=== PATIENT | female | born 1985 | race Two or more races ===

== ENCOUNTER 2016-09-10 12:45 | Inpatient (IN) | payer MEDICAID ==
[2016-09-10] VITALS (35 sets, daily range): BP systolic 94–113; BP diastolic 54–77; PULSE 74–107; RESP 18
[~2016-09-10 12:45] MED LIST: FOLI200T OR; PRENTAB72 PO; [UNRECOGNIZED DRUG - CODE] PO
--- NOTE | 2016-09-10 13:45 | PD ---
HPI Chief Complaint sharp abdominal pain Date Seen: Sep 10, 2016 Time Seen: 13:15 (Luis Chun MD R1) Travel History International Travel<30 Days: No Contact w/Intl Traveler<30Days: No Known Affected Area: No (Luis Chun MD R1) History of Present Illness HPI 31-year-old at 41/1 weeks presents with sharp pain since this morning and a REDDY for past 3 days. Cervical exam shows she has 3-4 cm dilated 60% effaced and -1 with intact membranes. Previous deliveries have been by vaginal at home without complications. Pt had a UTI in February and is GBS positive. Pt denies CP, SOB, N/V/D, and DVT pain. Para: 6 : 8 (Luis Chun MD R1) History Past Medical History Narrative Medical migraines (Luis Chun MD R1) Past Surgical History Surgical History: No Previous Surgery (Luis Chun MD) Family History Narrative Family History Father - denies Mother - HTN, DM, CVD, thyroid (Luis Chun MD) Social History Alcohol Use: No Tobacco Use: No Substance Abuse: No (Luis Chun MD R1) Allergies-Medications (Allergen,Severity, Reaction): Coded Allergies: Tramadol (Verified Allergy, Mild, Rash, 09/10/16) Home Meds Reported Medications Folic Acid 200 Mcg [id number] Mcg OR 10/04/11 Ferrous Sulfate (Hm Iron Slow Release)45 Mg Tab45 Mg PO 10/04/11 Vit W/ Ferrous Fumara () Tab1 Po 10/04/11 Review of Systems General / Constitutional: No: Fever, Weight Gain, Weight Loss, Chills Eyes: No: Diploplia, Blurred Vision, Visual changes, Pain, Photophobia, Other HENT: Headaches (Hx migraines), No: Vertigo, Dental Difficulties, Lightheadedness, Other Respiratory: No: Cough, Short of Breath Gastrointestinal: Vomiting (has been vomiting throughout ), No: Nausea, Diarrhea Genitourinary: Hesitancy, Pelvic Pain (suprapubic pain), No: Decreased Urinary Output, Discharge, Vaginal Bleeding Musculoskeletal: No: Limited ROM, Weakness, Cramping, Edema, Pain, Other Skin: No Rash, No Itching, No Dryness, No Lumps, No Change in Pigmentation, No Change in Nails, No Alopecia, No Lesions Neurologic: No: Weakness, Dizziness, Syncope, Focal Abnormalities, Coordination Problem, Headache, Slurred Speech, Seizures (Luis Chun MD R1) Physical Exam Narrative GENERAL: WDWN female lying in bed in NAD. SKIN: Warm and dry. HEAD: Normocephalic and atraumatic. EYES: No scleral icterus. No injection or drainage. EOMI ENT: No nasal drainage noted. Mucous membranes pink. Airway patent. NECK: Supple, trachea midline. CARDIOVASCULAR: RRR without murmur, gallop, or rub. RESPIRATORY: Breath sounds equal bilaterally w/no increased WOB. No accessory muscle use. ABDOMEN/GI: Abdomen soft, non-tender, no rebound, no guarding Gravid to 41 weeks size Fundal Height: 41 GENITOURINARY: External Genitalia: intact and normal in appearance Cervix: anterior Dilatation: 3-4 Effacement: 60 Station: -1 Presentation: vertex Membranes: intact Uterine Contractions: no FHT's: Category: 1 Baseline: 130 Reactive: yes Variability: moderate Decels: 0 EXTREMITIES: No cyanosis or edema or sign of DVT. NEUROLOGICAL: Awake and alert. Motor and sensory grossly within normal limits. Normal speech. (Luis Chun MD R1) Data Data Vital Signs Reviewed: Yes (Luis Chun MD R1) MDM Medical Record Reviewed: Yes Narrative Course / MDM 31-year-old at 41/1 presents with 1 day of sharp abdominal pains with no complications in previous pregnancies. Category 1 tracing, no contractions or leakage of fluid/blood, GBS+. 1. IUP - Monitor on toco - Develop plan for - Pt desires induction 2/2 suprapubic pelvic pain - Admit and induce labor - Oxytocin and titrate as appropriate - Pt does not desire pain meds at this time, thus, epidural on standby - PCN due to GBS+ (Luis Chun MD R1) Attending Attestation 31 yo @ 41w1d dated by 22 week . care with [facility]. Records requested and reviewed. Patient sent to [facility] for evaluation for IOL. 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 However at this time she is requesting IOL in the hospital secondary to dates and discomfort. Uncomplicated . Labs WNL. GBS POS. CAT I FHT. Occasional UC only. Favorable cervix. Discussed with patient and family IOL with pitocin, IV placement, monitoring, pain management if desired, Pen G for GBS prophylaxis. Patient agrees with plan of care. Patient seen and examined with Dr. Santillan and Dr. Chun. (Jeanette Rodriguez MD) Diagnosis Diagnosis: Primary Impression: Pelvic pain during in third trimester, antepartum Luis Chun MD R1 Sep 10, 2016 13:45 Jeanette Rodriguez MD Sep 10, 2016 14:49
[2016-09-10] MEDS ORDERED: LACTATED RINGER'S 1000 ML INJ 1,000 ML IV PRN (14:12)
[2016-09-10] MEDS ORDERED: SODIUM CHLORID 0.9% 500 ML INJ 500 ML IV PRN (14:15)
[2016-09-10] MEDS ORDERED: LIDOCAINE HCL 1% 50 ML VIAL INFIL PRN (14:15)
[2016-09-10] MEDS ORDERED: OXYTOCIN 30 UNITS-500ML PREMIX 500 ML IV SCH (14:15)
[2016-09-10] MEDS ORDERED: CITRIC ACID-SODIUM CITRATE LIQ 30 ML UDC PO SCH (14:15)
[2016-09-10] MEDS ORDERED: MINERAL OIL 10 ML VIAL TOPICAL PRN (14:15)
[2016-09-10] MEDS ORDERED: LIDOCAINE HCL 1% 50 ML VIAL I-DERMAL PRN (14:15)
--- NOTE | 2016-09-10 14:28 | HHI.HP ---
History & Physical H&P HPI Chief Complaint sharp abdominal pain Date Seen: Sep 10, 2016 Time Seen: 13:15 Travel History International Travel<30 Days: No Contact w/Intl Traveler<30Days: No Known Affected Area: No History of Present Illness HPI 31-year-old at 41/1 weeks presents with sharp pain since this morning and a REDDY for past 3 days. PMHx of migraines and has had one for past three days. Cervical exam shows 3-4 cm dilated 60% effaced and -1 with intact membranes. Previous deliveries have been by vaginal at home without complications. Pt had a UTI in February and is GBS positive. Pt denies CP, SOB, N/V/D, and DVT pain. Para: 6 : 8 History (Limited) History Past Medical History Narrative Medical migraines Past Surgical History Surgical History: No Previous Surgery Family History Narrative Family History Father - denies Mother - HTN, DM, CVD, thyroid Social History Alcohol Use: No Tobacco Use: No Substance Abuse: No Allergies-Medications Allergies-Medications (Allergen,Severity, Reaction): Coded Allergies: Tramadol (Verified Allergy, 09/10/16) Home Meds Reported Medications Folic Acid 200 Mcg Vas479 Mcg OR 10/04/11 Ferrous Sulfate (Hm Iron Slow Release)45 Mg Tab45 Mg PO 10/04/11 Vit W/ Ferrous Fumara () Tab1 Po 10/04/11 ROS Review of Systems General / Constitutional: No: Fever, Weight Gain, Weight Loss, Chills Eyes: No: Diploplia, Blurred Vision, Visual changes, Pain, Photophobia, Other HENT: Headaches (Hx migraines), No: Vertigo, Dental Difficulties, Lightheadedness, Other Respiratory: No: Cough, Short of Breath Gastrointestinal: Vomiting (has been vomiting throughout ), No: Nausea, Diarrhea Genitourinary: Hesitancy, Pelvic Pain (suprapubic pain), No: Decreased Urinary Output, Discharge, Vaginal Bleeding Musculoskeletal: No: Limited ROM, Weakness, Cramping, Edema, Pain, Other Skin: No Rash, No Itching, No Dryness, No Lumps, No Change in Pigmentation, No Change in Nails, No Alopecia, No Lesions Neurologic: No: Weakness, Dizziness, Syncope, Focal Abnormalities, Coordination Problem, Headache, Slurred Speech, Seizures Physical Exam Physical Exam Narrative GENERAL: WDWN female lying in bed in NAD. SKIN: Warm and dry. HEAD: Normocephalic and atraumatic. EYES: No scleral icterus. No injection or drainage. EOMI ENT: No nasal drainage noted. Mucous membranes pink. Airway patent. NECK: Supple, trachea midline. CARDIOVASCULAR: RRR without murmur, gallop, or rub. RESPIRATORY: Breath sounds equal bilaterally w/no increased WOB. No accessory muscle use. ABDOMEN/GI: Abdomen soft, non-tender, no rebound, no guarding Gravid to 41 weeks size Fundal Height: 41 GENITOURINARY: External Genitalia: intact and normal in appearance Cervix: anterior Dilatation: 3-4 Effacement: 60 Station: -1 Presentation: vertex Membranes: intact Uterine Contractions: no FHT's: Category: 1 Baseline: 130 Reactive: yes Variability: moderate Decels: 0 EXTREMITIES: No cyanosis or edema or sign of DVT. NEUROLOGICAL: Awake and alert. Motor and sensory grossly within normal limits. Normal speech. Data Data Data Vital Signs Reviewed: Yes MDM A/P: Medical Record Reviewed: Yes Narrative Course / MDM 31-year-old at 41/1 presents with 1 day of sharp abdominal pains with no complications in previous pregnancies. Category 1 tracing, no contractions or leakage of fluid/blood, GBS+. Pt desires induction of labor due to suprapubic pain. 1. IUP - Monitor on toco - Induce labor - Oxytocin and titrate as appropriate - Pt does not desire pain meds at this time, thus, epidural on standby - PCN due to GBS+ - Consider amniotomy after 2 doses of PCN Diagnosis Diagnosis: Primary Impression: Pelvic pain during in third trimester, antepartum (Luis Chun MD R1) H&P 31 yo @ 41w1d dated by 22 week US. care with [facility]. Records requested and reviewed. Patient sent to [facility] for evaluation for IOL. 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 However at this time she is requesting IOL in the hospital secondary to dates and discomfort. Uncomplicated . Labs WNL. GBS POS. CAT I FHT. Occasional UC only. Favorable cervix. Discussed with patient and family IOL with pitocin, IV placement, monitoring, pain management if desired, Pen G for GBS prophylaxis. Patient agrees with plan of care. Patient seen and examined with Dr. Santillan and Dr. Chun. (Jeanette Rodriguez MD) Luis Chun MD R1 Sep 10, 2016 14:28 Jeanette Rodriguez MD Sep 10, 2016 14:49
[2016-09-10] MEDS ORDERED: PENICILLIN G POTASSIUM INJ 5,000,000 UNITS in SODIUM CHLORIDE 0.9% INJ 100 ML IV ONE (14:30)
[2016-09-10] MEDS ORDERED: SODIUM CHLOR 0.9% 1000 ML INJ 1,000 ML IV PRN (14:32)
[2016-09-10] MEDS ORDERED: OXYTOCIN 30 UNITS-500ML PREMIX 500 ML IV ONE (15:00)
[2016-09-10 15:25] LABS: AUTOMATED NEUTROPHIL # 6.8 TH/MM3 (1.8-7.7); BASOPHIL # 0.1 TH/MM3 (0-0.2); BASOPHIL % 0.5 % (0.0-2.0); EOSINOPHIL # 0.2 TH/MM3 (0-0.4); EOSINOPHIL % 1.9 % (0.0-4.0); HEMATOCRIT 32.9 % (35.0-46.0); HEMO FLAGS DIFF FINAL; LYMPH % 24.2 % (9.0-44.0); LYMPHOCYTE # 2.5 TH/MM3 (1.0-4.8); MEAN CELL VOLUME 86.6 FL (80.0-100.0); MEAN CORPUSCULAR HEMOGLOBIN 28.1 PG (27.0-34.0); MEAN CORPUSCULAR HGB CONC 32.5 % (32.0-36.0); MONO % 7.7 % (0.0-8.0); NEUT % 65.7 % (16.0-70.0); PLATELET COUNT 258 TH/MM3 (150-450); RED CELL DISTRIBUTION WIDTH 13.9 % (11.6-17.2); WHITE BLOOD COUNT 10.3 TH/MM3 (4.0-11.0)
[2016-09-10] MEDS: LACTATED RINGER'S 1000 ML INJ 1,000 ML IV SCH ×2 (15:48→20:00)
[2016-09-10] MEDS: PENICILLIN G POTASSIUM INJ 2,500,000 UNITS in SODIUM CHLORIDE 0.9% INJ 100 ML IV SCH (19:59)
[2016-09-10] MEDS ORDERED: ACETAMINOPHEN 500 MG CPLT PO ONE (20:00)
--- NOTE | 2016-09-10 21:05 | PD.LABORPN ---
Subjective Subjective Sitting in bed, relatively comfortable. Pt states that she is doing well, no concerns (Vee Goode MD R1) Objective Vital Signs Vital Signs Date Time Temp Pulse Resp B/P Pulse Ox O2 Delivery O2 Flow Rate FiO2 09/10/16 20:48 84 108/65 09/10/16 20:03 79 111/65 09/10/16 19:06 76 113/64 09/10/16 19:05 18 09/10/16 18:15 18 09/10/16 17:45 82 100/54 09/10/16 17:44 18 09/10/16 16:42 85 113/57 09/10/16 15:49 18 09/10/16 15:48 84 106/66 Objective Pelvic Exam: Cervix: mid-position Dilatation: 4cm Effacement: 75% Station: -1 Presentation: vertex Membranes: AROM at 2045 Uterine Contractions: q3min FHT's: Category: 1 Baseline: 120s Reactive: yes Variability: moderate Decels: none (Vee Goode MD R1) Assessment/Plan Assessment and Plan 31yo at 41/1 in active labor. Category 1 tracing. AROM performed at 2045 pitocin at 6 miliunits/min, titrated per protocol GBS + penicillin q4h last dose at 2000 (Vee Goode MD R1) Vee Goode MD R1 Sep 10, 2016 21:05 Jeanette Rodriguez MD Sep 11, 2016 04:13
[2016-09-10] MEDS ORDERED: fentaNYL 2MCG-BUPIV 0.125% INJ 100 ML ONE (21:33)
[2016-09-10] MEDS ORDERED: BUPIVACAINE HCL PF 0.25% 10 ML VIAL ONE (21:52)
[2016-09-10] MEDS ORDERED: ePHEDrine/NS 25 MG/5 ML SYR ONE (21:53)
[2016-09-11] VITALS (42 sets, daily range): BP systolic 90–112; BP diastolic 56–82; PULSE 68–112; RESP 16–18; TEMP 97.9–98.5
[2016-09-11] MEDS: PENICILLIN G POTASSIUM INJ 2,500,000 UNITS in SODIUM CHLORIDE 0.9% INJ 100 ML IV SCH (00:12)
--- NOTE | 2016-09-11 01:21 | PD.LABORPN ---
Subjective Subjective Resting in bed comfortably. No concerns. Denies pelvic pressure/pain. (Varun Merida MD R1) Objective Vital Signs Vital Signs Date Time Temp Pulse Resp B/P Pulse Ox O2 Delivery O2 Flow Rate FiO2 09/11/16 00:10 81 09/11/16 00:05 85 09/11/16 00:00 77 09/11/16 00:00 81 109/66 09/10/16 23:55 76 09/10/16 23:50 79 09/10/16 23:45 85 09/10/16 23:45 75 100/61 09/10/16 23:35 76 09/10/16 23:30 82 09/10/16 23:30 83 105/71 09/10/16 23:25 80 09/10/16 23:20 94 09/10/16 23:15 75 09/10/16 23:15 81 105/65 09/10/16 23:10 84 09/10/16 23:05 78 09/10/16 23:00 94 09/10/16 23:00 84 101/70 09/10/16 22:50 98 09/10/16 22:50 86 101/68 09/10/16 22:45 85 111/64 09/10/16 22:45 83 09/10/16 22:40 88 106/65 09/10/16 22:40 74 09/10/16 22:35 97 09/10/16 22:35 86 109/65 09/10/16 22:30 85 106/65 09/10/16 22:30 81 09/10/16 22:25 81 09/10/16 22:25 98 109/59 09/10/16 22:20 84 102/58 09/10/16 22:20 82 09/10/16 22:15 80 108/59 09/10/16 22:15 87 09/10/16 22:13 86 111/67 09/10/16 22:11 107 94/77 09/10/16 22:10 87 09/10/16 22:05 80 09/10/16 22:05 86 100/64 09/10/16 22:00 77 09/10/16 22:00 83 111/55 09/10/16 21:59 81 100/68 09/10/16 20:48 84 108/65 09/10/16 20:03 79 111/65 09/10/16 19:06 76 113/64 09/10/16 19:05 18 09/10/16 18:15 18 09/10/16 17:45 82 100/54 09/10/16 17:44 18 Objective Pelvic Exam: @ 2300 on 09/10 Cervix: midposition Dilatation: 5 Effacement: 80% Station: -1 Presentation: vertex Membranes: AROM @ 2045 with clear fluid Uterine Contractions: every 2-3 mins FHT's: Category: 1 Baseline: 125 Reactive: Y Variability: moderate Decels: N (Varun Merida MD R1) Assessment/Plan Assessment and Plan 31yo at 41/1 in active labor. Category 1 tracing. AROM performed at 2045 pitocin at 11 miliunits/min, titrated per protocol GBS +, penicillin q4h (Varun Merida MD R1) Varun Merida MD R1 Sep 11, 2016 01:21 Jeanette Rodriguez MD Sep 11, 2016 04:13
[2016-09-11] MEDS ORDERED: MISOPROSTOL 200 MCG TAB ONE (02:43)
[2016-09-11] MEDS ORDERED: DOCUSATE SODIUM 50 MG/SENNA 8.6 MG TAB PO PRN (03:15)
[2016-09-11] MEDS ORDERED: BENZOCAINE 20% TOPICAL SPRAY 60 ML CAN TOPICAL PRN (03:15)
[2016-09-11] MEDS ORDERED: ONDANSETRON ODT 4 MG TAB PO PRN (03:15)
[2016-09-11] MEDS ORDERED: ZOLPIDEM TARTRATE 5 MG TAB PO PRN (03:15)
[2016-09-11] MEDS ORDERED: SODIUM CHLORIDE 0.9% FLUSH 10 ML FLUSH IV FLUSH PRN (03:15)
[2016-09-11] MEDS ORDERED: WITCH HAZEL 50%/GLYCERIN 12.5% 40 PAD JAR TOPICAL PRN (03:15)
[2016-09-11] MEDS ORDERED: ALUMINUM/MAGNESIUM/SIMETH 30 ML CUP PO PRN (03:15)
--- NOTE | 2016-09-11 03:16 | PD.OB.DELI ---
Delivery Date: Sep 11, 2016 Anesthesia: Epidural Episiotomy: None Vaginal Delivery: Normal Presentation: Occiput anterior Nuchal Cord: None Delayed cord clamping (45 sec): Yes : Male, Single One Minute : 8 Five Minute : 9 Weight: 3545g Placenta: Spontaneous delivery Laceration: No lacerations Additional Information Delivered by Dr. Goode and supervised by Dr. Rodriguez and Dr. Merida (Vee Goode MD R1) Additional Information 31 yo @ 41 weeks. IOL for postdates and pelvic pain. Pitocin induction. Epidural for anesthesia. AROM with clear fluid. Uncomplicated over intact perineum. Placental spontaneous and intact, grossly normal. EBL 100ml. ( Jeanette Rodriguez MD) Vee Goode MD R1 Sep 11, 2016 03:16 Jeanette Rodriguez MD Sep 11, 2016 04:16
--- NOTE | 2016-09-11 07:49 | HHI.OB ---
Subjective Post Day: 0 Remarks 31 year old female s/p at 41/3 wks gestation, PPD 0. AFVSS. Patient reports she is feeling well. pain is well-controlled. She is breast feeding and bonding well with baby. Ambulating without difficulties. She has not eaten yet. She has not had a bowel movement. She has not passed gas. Denies chest pain, dysuria, shortness of breath, or calf pain. (Vee Goode MD R1) Objective Vitals/I&O Vital Signs Date Time Temp Pulse Resp B/P Pulse Ox O2 Delivery O2 Flow Rate FiO2 09/11/16 06:30 100/60 09/11/16 06:30 98.4 81 18 09/11/16 04:37 18 09/11/16 04:30 80 109/62 09/11/16 04:30 18 09/11/16 04:15 77 102/59 09/11/16 04:15 18 09/11/16 04:00 18 09/11/16 04:00 81 96/66 09/11/16 03:45 18 09/11/16 03:45 83 103/64 09/11/16 03:30 18 09/11/16 03:30 68 102/62 09/11/16 03:30 97.9 09/11/16 03:15 84 110/67 09/11/16 03:15 98.0 18 09/11/16 03:00 92 109/70 09/11/16 02:55 91 09/11/16 02:50 86 09/11/16 02:45 84 112/82 09/11/16 02:45 95 09/11/16 02:35 92 09/11/16 02:30 85 98/70 09/11/16 02:30 75 09/11/16 02:25 81 09/11/16 02:20 80 09/11/16 02:15 104 09/11/16 02:15 74 102/69 09/11/16 02:10 89 09/11/16 02:05 93 09/11/16 02:00 87 09/11/16 02:00 84 99/62 09/11/16 01:55 71 09/11/16 01:50 73 09/11/16 01:45 90 103/58 09/11/16 01:45 69 7/15/17 01:40 99 09/11/16 01:35 96 09/11/16 01:30 73 94/66 09/11/16 01:30 112 09/11/16 01:20 75 09/11/16 01:15 104/56 09/11/16 01:10 107 09/11/16 01:00 101/65 09/11/16 00:55 82 09/11/16 00:45 102/68 09/11/16 00:40 85 09/11/16 00:30 110/62 09/11/16 00:25 81 09/11/16 00:20 97 09/11/16 00:15 80 09/11/16 00:15 83 09/11/16 00:15 100/60 09/11/16 00:10 81 09/11/16 00:05 85 09/11/16 00:00 77 09/11/16 00:00 81 109/66 09/10/16 23:55 76 09/10/16 23:50 79 09/10/16 23:45 85 09/10/16 23:45 75 100/61 09/10/16 23:35 76 09/10/16 23:30 82 09/10/16 23:30 83 105/71 09/10/16 23:25 80 09/10/16 23:20 94 09/10/16 23:15 75 09/10/16 23:15 81 105/65 09/10/16 23:10 84 09/10/16 23:05 78 09/10/16 23:00 94 09/10/16 23:00 84 101/70 09/10/16 22:50 98 14 22:50 86 101/68 09/10/16 22:45 85 111/64 09/10/16 22:45 83 14 22:40 88 106/65 1417 22:40 74 14 22:35 97 09/10/16 22:35 86 109/65 14/17 22:30 85 106/65 14/17 22:30 81 1417 22:25 81 14 22:25 98 109/59 1417 22:20 84 102/58 7/14/17 22:20 82 7/14/17 22:15 80 108/59 09/10/16 22:15 87 09/10/16 22:13 86 111/67 09/10/16 22:11 107 94/77 09/10/16 22:10 87 09/10/16 22:05 80 09/10/16 22:05 86 100/64 09/10/16 22:00 77 09/10/16 22:00 83 111/55 09/10/16 21:59 81 100/68 09/10/16 20:48 84 108/65 09/10/16 20:03 79 111/65 09/10/16 19:06 76 113/64 09/10/16 19:05 18 09/10/16 18:15 18 09/10/16 17:45 82 100/54 09/10/16 17:44 18 09/10/16 16:42 85 113/57 09/10/16 15:49 18 09/10/16 15:48 84 106/66 Objective Remarks GENERAL: Well-nourished, well-developed patient. CARDIOVASCULAR: Regular rate and rhythm without murmurs, gallops, or rubs. RESPIRATORY: Breath sounds equal bilaterally. No accessory muscle use. ABDOMEN/GI: Abdomen soft, tenderness on RLQ. Fundus: Firm, non-tender at umbilicus. GENITOURINARY: Moderate bleeding. EXTREMITIES: No cyanosis or edema, non-tender, without signs of DVT. Medications and IVs Current Medications Medications (Trade) Dose Ordered Sig/Nicole Route Start Time Stop Time Status Last Admin (NS Flush) 2 ml BID IV FLUSH 09/11/16 09:00 (NS Flush) 2 ml UNSCH PRN IV FLUSH 09/11/16 03:15 (Tylenol) 650 mg Q4H PRN PO 09/11/16 03:15 (Motrin) 600 mg Q6H PRN PO 09/11/16 03:15 (Americaine 20% Top Spr) 1 spray Q4H PRN TOPICAL 09/11/16 03:15 (Tucks Pads) 1 applic QID PRN TOPICAL 09/11/16 03:15 (Alee-Colace) 2 tab Q12H PRN PO 09/11/16 03:15 (Ambien) 5 mg HS PRN PO 09/11/16 03:15 (M-M-R Ii Inj) 0.5 ml ONCE ONCE SQ 09/11/16 16:00 09/11/16 16:01 (Boostrix Inj) 0.5 ml ONCE ONCE IM 09/11/16 16:00 09/11/16 16:01 (Mag-Al Plus Susp Liq) 15 ml Q8H PRN PO 09/11/16 03:15 (Zofran Odt) 4 mg Q6H PRN PO 09/11/16 03:15 (Vee Goode MD R1) Assessment/Plan Assessment and Plan 31 yo female s/p , PPD 0 - AFVSS - Continue routine care - Motrin PRN pain - Encourage OOB - Pelvic rest x 6 wks. - Contraception: Undecided - Anticipate D/C PPD2 (September 13) (Vee Goode MD R1) Attending Attestation PPD #0 s/p Doing well Minimal lochia Continue PP care and observation Patient seen and examined, d/w Dr. Merida/Dr. Goode (Jeanette Rodriguez MD) Vee Goode MD R1 Sep 11, 2016 07:48 Jeanette Rodriguez MD Sep 11, 2016 09:22
[2016-09-11] MEDS: IBUPROFEN 600 MG TAB PO PRN ×2 (08:12→18:14)
[2016-09-11] MEDS: ACETAMINOPHEN 325 MG TAB PO PRN ×4 (08:12→22:00)
[2016-09-11] MEDS ORDERED: SODIUM CHLORIDE 0.9% FLUSH 10 ML FLUSH IV FLUSH SCH (09:00)
[2016-09-11] MEDS ORDERED: MEASLES, MUMPS, RUBELLA VACCINE 0.5 ML VIAL SQ ONE (16:00)
[2016-09-11] MEDS ORDERED: DIPHTH/TETANUS/ACEL PERTUSSIS (BOOSTER) 0.5 ML VIAL/PFS IM ONE (16:00)
[2016-09-12] MEDS: IBUPROFEN 600 MG TAB PO PRN ×3 (00:09→14:48)
[2016-09-12 07:44] VITALS: BP 83/64; PULSE 75; RESP 16; TEMP 98.4
--- NOTE | 2016-09-12 07:46 | HHI.OB ---
Subjective Post Day: 1 Remarks 31 year old female s/p at 41/3 wks gestation, PPD 1. AFVSS. Patient reports she is feeling well. pain is well-controlled. She is breast feeding and bonding well with baby. Ambulating without difficulties. She has eaten without nausea vomiting. She has had a bowel movement. Denies chest pain, dysuria, shortness of breath, or calf pain. Objective Vitals/I&O Vital Signs Date Time Temp Pulse Resp B/P Pulse Ox O2 Delivery O2 Flow Rate FiO2 09/11/16 20:00 98.5 80 18 90/69 Objective Remarks GENERAL: Well-nourished, well-developed patient. CARDIOVASCULAR: Regular rate and rhythm without murmurs, gallops, or rubs. RESPIRATORY: Breath sounds equal bilaterally. No accessory muscle use. ABDOMEN/GI: Abdomen soft Fundus: Firm, non-tender at umbilicus. GENITOURINARY: Moderate bleeding. EXTREMITIES: No cyanosis or edema, non-tender, without signs of DVT. Medications and IVs Current Medications Medications (Trade) Dose Ordered Sig/Nicole Route Start Time Stop Time Status Last Admin (NS Flush) 2 ml BID IV FLUSH 09/11/16 09:00 (NS Flush) 2 ml UNSCH PRN IV FLUSH 09/11/16 03:15 (Tylenol) 650 mg Q4H PRN PO 09/11/16 03:15 09/11/16 22:00 (Motrin) 600 mg Q6H PRN PO 09/11/16 03:15 09/12/16 00:09 (Americaine 20% Top Spr) 1 spray Q4H PRN TOPICAL 09/11/16 03:15 09/11/16 08:13 (Tucks Pads) 1 applic QID PRN TOPICAL 09/11/16 03:15 09/11/16 08:12 (Alee-Colace) 2 tab Q12H PRN PO 09/11/16 03:15 09/11/16 22:00 (Ambien) 5 mg HS PRN PO 09/11/16 03:15 (Mag-Al Plus Susp Liq) 15 ml Q8H PRN PO 09/11/16 03:15 (Zofran Odt) 4 mg Q6H PRN PO 09/11/16 03:15 Assessment/Plan Assessment and Plan 31 yo female s/p , PPD 1 - AFVSS - Continue routine care - Motrin PRN pain - Encourage OOB - Pelvic rest x 6 wks. - Contraception: Will like an IUD - Okay to discharge home today Discussed with Keisha Pope MD R1 Sep 12, 2016 07:46
[2016-09-12] MEDS: ACETAMINOPHEN 325 MG TAB PO PRN ×3 (08:14→16:45)
[2016-09-12] MEDS ORDERED: BENZ20T TOPICAL ×2 (09:33→09:41)
[2016-09-12] MEDS ORDERED: IBUP-232 PO ×2 (09:33→09:41)
[2016-09-12] MEDS ORDERED: SENN1TAB PO ×2 (09:33→09:41)
--- NOTE | 2016-09-12 09:34 | HHI.DCPOC ---
Discharge Care Plan Diagnosis: (1) Pelvic pain during in third trimester, antepartum (2) Vaginal delivery Report Symptoms to Your Doctor -Temperature above 100.5 degrees -Redness, of incision or excessive or foul smelling drainage -Unusual pain or calf pain -Increased vaginal bleeding -Painful or difficulty urinating -Feelings of extreme sadness or anxiety after 2 weeks Goals to Promote Your Health * To prevent worsening of your condition and complications * To maintain your health at the optimal level Directions to Meet Your Goals Take your medications as prescribed Follow your dietary instruction Follow activity as directed Ensure plenty of rest for recovery Drink fluids for hydration Keep your appointments as scheduled Take your immunizations and boosters as scheduled If your symptoms worsen call your PCP, if no PCP go to Urgent Care Center or Emergency Room Smoking is Dangerous to Your Health. Avoid second hand smoke Call the 24-hour crisis hotline for domestic abuse at Keisha Cavanaugh MD R1 Sep 12, 2016 09:34
== END 2016-09-12 20:35 | disposition home or self-care (01) | DRG 775 ==
LOC: HOBED 12:45 → H2EB 14:43 → H1EA 09-11 06:11
PROVIDERS: ADMIT Obstetrics & Gynecology; ATTEND Obstetrics & Gynecology
PROC: 10907ZC Drainage of Amniotic Fluid, Therapeutic from Products of Conception, Via Natural or Artificial Opening (ICD-10-PCS; 2016-09-10)
PROC: 3E033VJ Introduction of Other Hormone into Peripheral Vein, Percutaneous Approach (ICD-10-PCS; 2016-09-10)
PROC: 3E0S3CZ (ICD-10-PCS; 2016-09-10)
PROC: 00HU33Z Insertion of Infusion Device into Spinal Canal, Percutaneous Approach (ICD-10-PCS; 2016-09-10)
PROC: 10E0XZZ Delivery of Products of Conception, External Approach (ICD-10-PCS; principal; 2016-09-11)
DX: O48.0 Post-term pregnancy (principal); O26.893 Other specified pregnancy related conditions, third trimester; O99.824 Streptococcus B carrier state complicating childbirth; Z37.0 Single live birth; Z3A.41 41 weeks gestation of pregnancy
CPT/HCPCS: 85025; 86900; 86901; J2540; J2590; J7120